=== PATIENT | female | born 1990 | race African-American/Black ===

== ENCOUNTER 2022-11-14 00:18 | Emergency (ER) | payer MEDICAID, OTHER ==
[~2022-11-14] VITALS: Ht 162.6 cm; Wt 81.2 kg
[2022-11-14 00:32] VITALS: BP 159/94; O2SAT 98
[2022-11-14 01:00] LABS: CLARITY URINE CLEAR (CLEAR); COLOR URINE YELLOW (YELLOW); GLUCOSE URINE NEGATIVE (NEGATIVE); KETONES URINE TRACE (NEGATIVE); LEUKOCYTE ESTERASE URINE NEGATIVE (NEGATIVE); NITRITE URINE NEGATIVE (NEGATIVE); OCCULT BLOOD URINE NEGATIVE (NEGATIVE); PH URINE 6.5 (4.5-8.0); PROTEIN URINE NEGATIVE (NEGATIVE); SPECIFIC GRAVITY URINE 1.015 (1.005-1.030); UROBILINOGEN URINE 0.2 E.U./dL (0.2-1.0)
[2022-11-14] MEDS ORDERED: LIDOCAINE HCL/PF 1% 10 MG/ML 5ML VIAL INFIL ONE (05:45)
[2022-11-14] MEDS ORDERED: TOPUD PO (06:15)
[2022-11-14 06:52] VITALS: PULSE 120; RESP 14; TEMP 98
== END 2022-11-14 06:56 | disposition home or self-care (01) ==
LOC: EDBD 00:18 → ER 00:18
DX: S01.01XA Laceration without foreign body of scalp, initial encounter (principal); Z88.1 Allergy status to other antibiotic agents; W22.8XXA Striking against or struck by other objects, initial encounter; Y93.89 Activity, other specified; Y92.89 Other specified places as the place of occurrence of the external cause; Y99.8 Other external cause status
CPT/HCPCS: 81003; 81025; 12001; 99283; J3490; Z7610 ×4

== ENCOUNTER 2022-12-01 08:24 | Emergency (ER) | payer OTHER ==
[~2022-12-01] VITALS: Ht 162.6 cm; Wt 79.4 kg
[~2022-12-01 08:24] MED LIST: TOPUD PO
[2022-12-01 08:29] VITALS: O2SAT 100
[2022-12-01 08:44] VITALS: BP 129/72; PULSE 72; RESP 15; TEMP 98.5
== END 2022-12-01 08:57 | disposition home or self-care (01) ==
LOC: ER 08:24
DX: S01.01XD Laceration without foreign body of scalp, subsequent encounter (principal); X58.XXXD Exposure to other specified factors, subsequent encounter
CPT/HCPCS: 99281

== ENCOUNTER 2023-01-11 08:44 | Emergency (ER) | payer OTHER ==
[~2023-01-11] VITALS: Ht 167.6 cm; Wt 91.0 kg
[2023-01-11 08:49] VITALS: PULSE 85
[2023-01-11 08:54] VITALS: BP 139/95; RESP 18; TEMP 98.2; O2SAT 99
== END 2023-01-11 10:46 | disposition left against medical advice (07) ==
LOC: ER 08:56
DX: J02.9 Acute pharyngitis, unspecified (principal); Z53.21 Procedure and treatment not carried out due to patient leaving prior to being seen by health care provider
CPT/HCPCS: 99281